=== PATIENT | male | born 1965 | race Caucasian/White ===

== ENCOUNTER → 2021-09-05 | Outpatient (CLI) | payer BC ==
[~2021-09-05] MED LIST: ADVAIR 250-501 EACH INH; ALBUTEROL; CARTIA XT240 MG PO; ENDOCET 7.5-321 EACH PO
[2021-09-05 12:02] LABS: HEMOGLOBIN 15.7 gm/dl (14.0-17.5); RED BLOOD COUNT 5.33 M/UL (4.20-5.50); WHITE BLOOD COUNT 6.8 K/UL (4.5-11.0)
[2021-09-05 13:05] LABS: BUN/CREATININE RATIO 28 (0-10)
== END ==
LOC: OPSV2 11:19
PROVIDERS: Orthopaedic Surgery
DX: Z01.818 Encounter for other preprocedural examination (principal); M75.101 Unspecified rotator cuff tear or rupture of right shoulder, not specified as traumatic
CPT/HCPCS: 71046; 80048; 85027; 93005

== ENCOUNTER → 2021-09-11 | Day surgery (SDC) | payer BC ==
[~2021-09-11] VITALS: Ht 175.3 cm; Wt 118.4 kg
== END | disposition home or self-care (01) ==
LOC: OR 06:30
DX: S46.011A Strain of muscle(s) and tendon(s) of the rotator cuff of right shoulder, initial encounter (principal); M19.011 Primary osteoarthritis, right shoulder; I10 Essential (primary) hypertension; J45.909 Unspecified asthma, uncomplicated; Z79.899 Other long term (current) drug therapy; Z20.822 Contact with and (suspected) exposure to COVID-19; X50.3XXA Overexertion from repetitive movements, initial encounter
CPT/HCPCS: C1713; J0690; J1100; J1885; J2001; J2250; J2405; J2704; J2710; J2795; J3010; J7120